=== PATIENT | male | born 1960 | race African-American/Black ===

== ENCOUNTER 2023-12-05 19:23 | Emergency (ER) | payer SELFPAY ==
[~2023-12-05] VITALS: Ht 177.8 cm; Wt 80.0 kg
[2023-12-05 19:29] VITALS: O2SAT 98
[2023-12-05 20:31] LABS: BASOPHILS % 0.6 % (0.0-2.0); EOSINOPHILS % 6.6 % (0.0-5.0); HEMOGLOBIN. 14.2 g/dL (14.0-18.0); LYMPHOCYTES % 23.9 % (20.0-50.0); MEAN CORPUSCULAR HEMOGLOBIN 28.8 pg (28.0-32.0); MEAN CORPUSCULAR HGB CONC 32.2 g/dL (31.0-37.0); MEAN CORPUSCULAR VOLUME 89.6 fL (80.0-94.0); MEAN PLATELET VOLUME 8.9 fl (7.4-10.4); MONOCYTES % 6.2 % (2.0-8.0); NEUTROPHILS % 62.7 % (40.0-76.0); PLATELET 229 x1000/uL (130-400); RED BLOOD CELL COUNT 4.91 mill/uL (4.7-6.1); RED CELL DISTRIBUTION WIDTH 13.8 % (11.6-14.6); WHITE BLOOD COUNT 6.9 x1000/uL (4.5-11.0)
[2023-12-05 20:44] LABS: INR 1.1; PROTHROMBIN TIME 11.8 sec (9.6-11.0)
[2023-12-05 20:49] LABS: CREATINE KINASE 179 IU/L (46-171)
[2023-12-05 21:17] LABS: ALANINE AMINOTRANSFERASE 26 IU/L (10-49); ALBUMIN 4.4 g/dL (3.2-4.8); ASPARTATE AMINOTRANSFERASE 23 IU/L (<34); BILIRUBIN TOTAL 0.7 mg/dL (0.1-1.0); CALCIUM 9.5 mg/dL (8.7-10.4); CARBON DIOXIDE 21 mEq/L (21-32); CHLORIDE 101 mEq/L (98-107); CREATININE 1.5 mg/dL (0.6-1.3); GLUCOSE 244 mg/dL (70-105); POTASSIUM 4.5 mEq/L (3.5-5.1); PROTEIN TOTAL 7.2 g/dL (6.0-8.3); SODIUM 132 mEq/L (136-145); TROPONIN I HIGH SENSITIVITY 9 ng/L (3.0-53); UREA NITROGEN BLOOD 16 mg/dL (9-23)
[2023-12-06] MEDS ORDERED: ONDANSETRON HCL 4MG/2ML INJ IV PRN
[2023-12-06] MEDS ORDERED: DEXTROSE 50% WATER 50ML SYRINGE IV PRN
[2023-12-06] MEDS ORDERED: MAGNESIUM/ALUMINUM HYDROXIDE/SIMETHICONE 30ML UDC PO PRN
[2023-12-06] MEDS ORDERED: DIPHENHYDRAMINE 50MG/ML VIAL IV PRN
[2023-12-06] MEDS ORDERED: CLONIDINE 0.1MG TABLET PO PRN
[2023-12-06] MEDS ORDERED: ACETAMINOPHEN 325MG TABLET PO PRN ×2
[2023-12-06] MEDS: SODIUM CHLORIDE 0.9% 1,000 ML IV SCH (02:04)
[2023-12-06] MEDS: SODIUM CHLORIDE 0.9% INJ 3ML FLUSH IVF SCH (06:02)
[2023-12-06 07:36] LABS: BASOPHILS % 1.1 % (0.0-2.0); EOSINOPHILS % 3.7 % (0.0-5.0); HEMATOCRIT. 39.3 % (42.0-52.0); LYMPHOCYTES % 26.8 % (20.0-50.0); MEAN CORPUSCULAR HEMOGLOBIN 29.6 pg (28.0-32.0); MEAN CORPUSCULAR VOLUME 89.9 fL (80.0-94.0); MEAN PLATELET VOLUME 8.6 fl (7.4-10.4); MONOCYTES % 7.6 % (2.0-8.0); NEUTROPHILS % 60.8 % (40.0-76.0); PLATELET 218 x1000/uL (130-400); RED BLOOD CELL COUNT 4.38 mill/uL (4.7-6.1); RED CELL DISTRIBUTION WIDTH 13.8 % (11.6-14.6); WHITE BLOOD COUNT 8.3 x1000/uL (4.5-11.0)
[2023-12-06 07:54] LABS: TROPONIN I HIGH SENSITIVITY 15 ng/L (3.0-53)
[2023-12-06 07:58] LABS: CALCIUM 8.7 mg/dL (8.7-10.4); CARBON DIOXIDE 24 mEq/L (21-32); CHLORIDE 106 mEq/L (98-107); GLUCOSE 250 mg/dL (70-105); POTASSIUM 4.2 mEq/L (3.5-5.1); SODIUM 134 mEq/L (136-145); THYROID STIMULATING HORMONE 2.04 uIU/mL (0.55-4.78); UREA NITROGEN BLOOD 18 mg/dL (9-23)
[2023-12-06 08:14] VITALS: BP 106/58; PULSE 75; RESP 16; TEMP 98.2
[2023-12-06] MEDS ORDERED: INSULIN LISPRO 100 UNITS/ML SUBCUT SCH (08:20)
[2023-12-06] MEDS ORDERED: BLOOD SUGAR DIAGNOSTIC STRIP TEST SCH (09:00)
[2023-12-06] MEDS ORDERED: ASPIRIN 81MG EC TABLET PO SCH (09:00)
[2023-12-06] MEDS ORDERED: ENOXAPARIN 40MG/0.4ML SYR SUBCUT SCH (09:00)
[2023-12-06] MEDS ORDERED: ATORVASTATIN CALCIUM 20MG TABLET PO SCH (21:00)
== END 2023-12-06 10:04 | disposition left against medical advice (07) ==
LOC: ER 19:23 → EDBEDREQ 23:43 → EDBEDREQTM 23:43 → CANBEDREQ 12-06 08:12 → ER 12-06 10:04
DX: E11.8 Type 2 diabetes mellitus with unspecified complications (principal); R55 Syncope and collapse; E11.9 Type 2 diabetes mellitus without complications; E78.00 Pure hypercholesterolemia, unspecified; I10 Essential (primary) hypertension
CPT/HCPCS: 80053; 82550; 85025 ×2; 85610; 84484 ×2; 36415 ×2; 71045; 70450; 93005; 99285; 80048; 83036; 84443; 96360; Z7610